=== PATIENT | male | born 1990 | race Caucasian/White ===

== ENCOUNTER → 2018-05-21 | Outpatient (CLI) | payer BC | LOC: M RAD 11:50 | PROVIDERS: ATTEND Internal Medicine Endocrinology, Diabetes & Metabolism | DX: E05.00 Thyrotoxicosis with diffuse goiter without thyrotoxic crisis or storm (principal) | CPT/HCPCS: 79005; A9517 ==

== ENCOUNTER 2021-01-30 15:21 | Emergency (ER) | payer BC ==
[~2021-01-30] VITALS: Ht 182.9 cm; Wt 111.9 kg
[2021-01-30 15:22] VITALS: BP 132/73
[2021-01-30] MEDS ORDERED: LEVO175T2 (15:31)
== END 2021-01-30 21:01 | disposition left against medical advice (07) ==
LOC: M ED 15:21
DX: Z53.21 Procedure and treatment not carried out due to patient leaving prior to being seen by health care provider (principal)